=== PATIENT | female | born 1975 | race Caucasian/White ===

== ENCOUNTER 2017-02-09 12:31 | Emergency (ER) | payer BC ==
--- NOTE | ~2017-02-09 | CR181 ---
[facility] A Service of [facility] & [facility] RADIOLOGY TEXT RESULTS PATIENT: MITALI YOUNGBLOOD LOCATION: [place] : [birth year] UNIT #: [id number] AGE: [address]: FILIPPO HARTLEY SEX: F ORDER DR: [id number] [facility] [address] [place], [place] [address] [id number] MR#: [id number] Acc #: [id number] NAME: MITALI YOUNGBLOOD : 1975 SEX: F STUDY DATE/TIME: 02/09/2017 12:43 UNIT: [facility] ROOM: STUDY DESCRIPTION: CR Lumbar Spine 2 or 3 Views Attending Physician: Filippo Hartley Aprn Ordering Physician: Ed Juan Singletary M.D. Primary Care Physician: No Primary Care Physician MEDICAL IMAGING REPORT This report is preliminary unless electronic signature is present EXAM Lumbar spine, 3 views. INDICATION 41-year-old female with fall today and low back pain. COMPARISON STUDIES No comparisons. FINDINGS Vertebral body heights and alignment and disc spaces are normal. IMPRESSION Negative Dictated by... Jhon Hernandez M.D. THIS IS AN ELECTRONICALLY VERIFIED REPORT Jhon Hernandez M.D. at 02/09/2017 4:56 PM DELANEY/lina TD: 02/09/2017 14:57 JOB #: [id number] MEDICAL IMAGING REPORT COPY
--- NOTE | ~2017-02-09 | CR243 ---
[facility] A Service of [facility] & [facility] RADIOLOGY TEXT RESULTS PATIENT: MITALI YOUNGBLOOD LOCATION: [facility]FT[facility] : [birth year] UNIT #: [id number] AGE: [address]: FILIPPO HARTLEY SEX: F ORDER DR: [id number] [facility] [address] [place], [place] [address] [id number] MR#: [id number] #: [id number] NAME: MITALI YOUNGBLOOD : 1975 SEX: F STUDY DATE/TIME: 02/09/2017 12:44 UNIT: [facility] ROOM: STUDY DESCRIPTION: CR Thoracic Spine 3 Views Attending Physician: Filippo Hartley Aprn Ordering Physician: [facility] Primary Care Physician: Primary Care Physician No MEDICAL IMAGING REPORT This report is preliminary unless electronic signature is present EXAM Thoracic spine 3 views INDICATIONS 41-year-old female with fall today and back pain. No comparisons. FINDINGS Vertebral body heights alignment and disc spaces are normal. IMPRESSION Negative Dictated by... Jhon Hernandez M.D. THIS IS AN ELECTRONICALLY VERIFIED REPORT Jhon Hernandez M.D. at 02/09/2017 4:56 PM DELANEY/johny TD: 02/09/2017 14:58 JOB #: [id number] MEDICAL IMAGING REPORT COPY
[2017-02-09 12:31] LABS: URINE SOURCE CLEAN CATCH
[2017-02-09 12:46] LABS: URINE APPEARANCE CLEAR; URINE BILIRUBIN NEG (NEG); URINE BLOOD NEG (NEG); URINE COLOR YELLOW; URINE GLUCOSE NEG (NEG); URINE KETONE NEG (NEG); URINE LEUKOCYTE ESTERASE NEG (NEG); URINE NITRATE NEG (NEG); URINE PROTEIN NEG (NEG); URINE SPECIFIC GRAVITY 1.018 (1.003-1.035); URINE UROBILINOGEN 0.2 MG/DL (NEG)
[2017-02-09 12:49] LABS: CULTURE INDICATED? NO
== END 2017-02-09 14:47 | disposition home or self-care (01) ==
LOC: CFTX 12:31
PROVIDERS: Nurse Practitioner Family
DX: S30.0XXA Contusion of lower back and pelvis, initial encounter (principal); E03.9 Hypothyroidism, unspecified; F17.210 Nicotine dependence, cigarettes, uncomplicated; Z88.8 Allergy status to other drugs, medicaments and biological substances; W01.0XXA Fall on same level from slipping, tripping and stumbling without subsequent striking against object, initial encounter; Y92.9 Unspecified place or not applicable
CPT/HCPCS: 72072; 72100; 81003; 90715; 99284